=== PATIENT | female | born 1985 | race Caucasian/White ===

== ENCOUNTER → 2017-04-05 | Outpatient (REF) ==
[~2017-04-05] MED LIST: ANTIVERT 25MG25 MG PO; BACTRIM PO; GENTAMICIN EYE D5 ML OP; HALDOL .5M0.5 MG/TAB PO; NO HOME MEDICATIONS; TESSALON PERLE100 MG PO; XANAX 0.5MG0.5 MG PO; ZOFRAN4 M1 PO
[2017-04-05 09:26] LABS: HIV 1/2 Antibodies Non-Reactive; HIV-1p24 Antigen Non-Reactive
== END ==
LOC: ZLAB.WCH 08:54
PROVIDERS: Family Medicine
DX: Z01.89 Encounter for other specified special examinations (principal)

== ENCOUNTER → 2017-09-28 | Outpatient (REF) | LOC: ZLAB.WCH 08:48 | DX: Z01.89 Encounter for other specified special examinations (principal) ==

== ENCOUNTER → 2021-01-10 | Outpatient (CLI) | payer OTHER | LOC: COL.RAD 12:44 | DX: S69.91XA Unspecified injury of right wrist, hand and finger(s), initial encounter (principal) ==

== ENCOUNTER 2024-02-01 23:24 | Emergency (ER) | payer SELFPAY ==
[~2024-02-01] VITALS: Ht 172.7 cm; Wt 65.9 kg
[2024-02-01 23:25] VITALS: BP 128/83; PULSE 85; TEMP 98.4
== END 2024-02-01 23:45 | disposition left against medical advice (07) ==
LOC: COL.ER 23:24
DX: Z91.410 Personal history of adult physical and sexual abuse (principal)

== ENCOUNTER 2024-02-16 11:07 | Day surgery (SDC) | payer MEDICAID ==
[~2024-02-16] VITALS: Ht 177.8 cm; Wt 58.6 kg
[~2024-02-16 11:07] MED LIST changes: +NORCO 325 MG-51 TAB PO
[2024-02-16] MEDS ORDERED: TYLENOL 500MG500 MG PO (11:48)
[2024-02-16 12:00] LABS: TRICYCLIC ANTIDEPRESS URINE NEGATIVE (NEGATIVE)
[2024-02-16] MEDS ORDERED: Midazolam 2 MG/2 ML VIAL ONE (12:25)
[2024-02-16] MEDS ORDERED: fentaNYL 50 MCG/ML 2 ML VIAL ONE (12:25)
[2024-02-16] MEDS ORDERED: NS 10 ML IV ONE (12:25)
[2024-02-16] MEDS ORDERED: dexAMETHasone 10 MG/ML VIAL ONE (12:25)
[2024-02-16] MEDS ORDERED: LR 1,000 ML IV ONE (12:30)
--- NOTE | 2024-02-16 13:10 | NUR ---
1249-CALL TO SANJANA DUFFY-SAWMILL WORKER RE: BLOOD ALCOHOL LEVEL AND CONSENT FORMS SIGNED BEING INTOXICATED. SHE STATED SHE WOULD FIND OUT HOW TO PROCEED. PT DOES NOT HAVE A DPOA ON FILE. 1253-DR KWOK CHOSE TO CANCEL SURGERY DUE TO LAB RESULTS. 1255-PT INFORMED OF SURGERY CANCELLATION. PT VERBALIZED UNDERSTANDING. PT INSTRUCTED OFFICE WILL BE IN CONTACT TO RESCHEDULE SURGERY. 1310-PT AMBULATED OFF THE UNIT ACCOMPANIED BY HER FRIEND [place].
[2024-02-16 13:12] VITALS: BP 113/89; PULSE 84; TEMP 97.5
== END 2024-02-16 13:10 | disposition home or self-care (01) ==
LOC: SDCO 11:07
PROVIDERS: Registered Nurse
DX: S52.552A Other extraarticular fracture of lower end of left radius, initial encounter for closed fracture (principal); W22.8XXA Striking against or struck by other objects, initial encounter; Y93.55 Activity, bike riding; Z53.9 Procedure and treatment not carried out, unspecified reason
CPT/HCPCS: J0690; J1100; J2250; J2795; J3010; J7120

== ENCOUNTER 2024-06-28 13:34 | Emergency (ER) | payer MEDICAID ==
[~2024-06-28] VITALS: Ht 177.8 cm; Wt 55.5 kg
[~2024-06-28 13:34] MED LIST changes: +TYLENOL 500MG500 MG PO
[2024-06-28 13:57] VITALS: TEMP 98.5
[2024-06-28] MEDS ORDERED: NS 1,000 ML IV ONE (14:15)
[2024-06-28 14:37] LABS: COLLECTION METHOD CLEAN CATCH
[2024-06-28 14:41] LABS: BASO % 0.4 % (0.0-2.0); EOS # 0.1 K/mm3 (0.0-0.7); EOS % 0.6 % (0.0-4.0); GRAN # 9.1 K/mm3 (1.4-6.5); GRAN % 85.5 % (42.2-75.2); HEMOGLOBIN 10.6 g/dl (12.5-16.0); LYMPH # 0.6 K/mm3 (1.2-3.4); LYMPH % 5.3 % (20.0-51.0); MEAN CELL VOLUME 79 fl (80.0-100.0); MEAN CORPUSCULAR HEMOGLOBIN 25 pg (27-31); MEAN CORPUSCULAR HGB CONC 32 g/dl (33.0-37.0); MEAN PLATELET VOLUME 9.5 fl (7.4-10.4); MONO # 0.8 K/mm3 (0.1-0.6); MONO % 7.8 % (1.7-9.3); PLATELET COUNT 452 K/mm3 (130-400); RED BLOOD COUNT 4.26 M/mm3 (4.10-5.30); REDCELL DISTRIBUTION WIDTH-CV 18.8 % (11.5-14.5)
[2024-06-28 14:45] LABS: HEMATOCRIT 33.7 % (37.0-47.0)
[2024-06-28 14:49] LABS: PH 5.5 (5.0-8.5); URINE APPEARANCE CLOUDY (CLEAR/HAZY); URINE BLOOD NEGATIVE (NEGATIVE); URINE COLOR YELLOW (YELLOW); URINE GLUCOSE NEGATIVE (NEGATIVE); URINE KETONE TRACE (NEGATIVE); URINE NITRATE NEGATIVE (NEGATIVE); URINE PROTEIN(semi-quant) TRACE (NEGATIVE)
[2024-06-28 14:59] LABS: ALBUMIN 3.4 g/dL (3.5-5.0); BILIRUBIN,TOTAL 0.3 mg/dL (0.2-1.2); C-REACTIVE PROTEIN 1.4 mg/dL (0.00-0.50); CALCIUM 8.5 mg/dL (8.4-10.2); CREATININE, serum 0.72 mg/dL (0.57-1.11); POTASSIUM 3.5 mEq/L (3.5-4.5); TOTAL PROTEIN 7.5 g/dl (6.2-8.1)
[2024-06-28] MEDS ORDERED: Albuterol/Ipratropium 3 MG-0.5 MG/3 ML Neb Soln IH ONE (15:30)
[2024-06-28] MEDS ORDERED: cefTRIAXone 1 G in Water For Injection,Sterile 10 ML IV ONE (15:30)
[2024-06-28] MEDS ORDERED: Ondansetron 4 MG/2 ML VIAL IV ONE (15:30)
[2024-06-28] MEDS ORDERED: methylPREDNISolone Sod Succ 125 MG/2 ML VIAL IV ONE (15:30)
[2024-06-28] MEDS ORDERED: Albuterol 90 MCG/PUFF 8 GM MDI IH ONE (16:45)
[2024-06-28] MEDS ORDERED: ZITHROMAX Z PA250 MG PO (16:47)
[2024-06-28] MEDS ORDERED: PREDNISONE50 MG PO (16:47)
[2024-06-28 16:49] VITALS: BP 103/60; PULSE 107
== END 2024-06-28 16:56 | disposition home or self-care (01) ==
LOC: COL.ER 13:34
PROVIDERS: Nurse Practitioner
DX: J18.1 Lobar pneumonia, unspecified organism (principal); F17.210 Nicotine dependence, cigarettes, uncomplicated
CPT/HCPCS: J0696; J2405; J2919; J7030